=== PATIENT | female | born 1960 | race Caucasian/White ===

== ENCOUNTER 2020-03-30 12:04 | Outpatient (CLI) | payer BC, OTHER, SELFPAY ==
--- NOTE | ~2020-03-30 | XR_ITS ---
XR knee LT 3V DATE: 03/30/2020 12:32 INDICATION: Left knee pain with bending for one year. TECHNIQUE: [place] and AP and lateral views COMPARISON: None FINDINGS: No fracture or dislocation or joint effusion is evident. Patellar tendon enthesopathy at qu adriceps and patellar tendon insertion sites. No periosteal reaction or bone destruction. Joint spaces are well preserved at the knee joint. No radiopaque intra-articular loose body or chondr ocalcinosis. IMPRESSION: Patellar enthesopathy Reviewed, dictated and finalized at location B. EAR MEDICINE TECHNICIAN IMPRESSION: Patellar enthesopathy
== END 2020-03-30 12:05 | disposition home or self-care (01) ==
LOC: CHSIMG 12:10
PROVIDERS: PCP Internal Medicine; Visit Provider Internal Medicine
DX: M25.562 Pain in left knee (principal); Z00.00 Encounter for general adult medical examination without abnormal findings; E78.5 Hyperlipidemia, unspecified
CPT/HCPCS: 73562

== ENCOUNTER 2020-04-13 08:00 | Outpatient (RCR) | payer BC, OTHER, SELFPAY ==
--- NOTE | 2020-04-17 06:44 | PTOPEVAL ---
Thank you for referring Nina Figueredo to [facility].? The patient is scheduled to be seen for therapy? __2__x/week for 8 visits. Please review, sign, date and return this plan of care MICHAEL. I agree with and certify that the following plan of care is medically necessary. Referring Physician Date Admitting Provider: Attending Provider: Rufus Cuevas MD Referring Provider: *PT Outpatient Evaluation Start: 04/13/20 08:09 Freq: Status: Active Protocol: Document 04/13/20 08:09 ZAIN (Rec: 04/13/20 08:39 [email or web address] [id number]) Therapy Assessment Status Assessment Status Assessment Status Evaluation Evaluation Information Problem Diagnosis left knee tendonitis Onset 04/14/19 Subjective Information Pt. recalls off/on knee pain Query Text:As Reported By Patient/ for the past year. She states Family that she recalls no specific injury. She describes pain along the left knee cap and into the patellar tendon. She reports that pain is not constant. She states that bending the knee beyond 90 degrees will increase her pain . She states that pain is most notable after getting up from a long period of sitting. She reports that she will get pain with turning on the left leg as well. She reports that her goal is to get rid of her left knee pain. 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 Activity of Daily Living Ability Independent Indoor/Home Mobility Independent Community Mobility Independent Stairs Ability Independent Functional Cognition (Planning, Shopping Independent , Taking Medications) Cooking Yes Cleaning Yes Laundry Yes Shopping Yes Driving Yes Pain Assessment Pain Scale Pain Scale Used Numeric (1 - 10) Self Report Pain Assessment Left Knee(s) Reported Pain Level 3 Greatest Pain Intensity 10 Pain Score Pain Score 3: Self Report Interventions Used Interventions Used By Clinicians Electrical Stimulation, Exercise,Heat Lower Extremity Range of Motion General Lower Extremity Range of Motion Gross Lower
== END 2020-05-07 09:15 | disposition home or self-care (01) ==
LOC: CHSPT 08:00
PROVIDERS: PCP Internal Medicine; Visit Provider Internal Medicine
DX: M76.52 Patellar tendinitis, left knee (principal)
CPT/HCPCS: 97014; 97110; 97140; 97161; G0283

== ENCOUNTER 2020-11-09 10:39 | Outpatient (CLI) | payer BC, SELFPAY ==
[2020-11-09 13:39] LABS: SARS-CoV-2 RNA PCR Negative (Negative)
== END 2020-11-09 10:40 | disposition home or self-care (01) ==
PROVIDERS: PCP Internal Medicine; Visit Provider Internal Medicine
DX: Z20.822 Contact with and (suspected) exposure to COVID-19 (principal)
CPT/HCPCS: C9803; U0003; U0005

== ENCOUNTER 2020-12-05 19:59 | Emergency (ER) | payer BC, OTHER, SELFPAY ==
--- NOTE | ~2020-12-05 | XR_ITS ---
XR shoulder LT min 2V, XR clavicle LT 12/05/2020 20:30 (accession [id number]), 12/05/2020 20:29 (accession [id number]) INDICATION: Left shoulder pain PROCEDURE: 4 views left shoulder and 2 views left clavicle COMPARISON: No prior studies for comparison. FINDINGS: Fracture, dislocation or subluxation is not identified. There is anatomic alignment. The so ft tissues appear within normal limits. No foreign bodies are identified. IMPRESSION: 1: NO ACUTE BONE OR JOINT ABNORMALITY IDENTIFIED. Reviewed, dictated and finalized at location A. IMPRESSION: 1: NO ACUTE BONE OR JOINT ABNORMALITY IDENTIFIED.
[2020-12-05 20:13] VITALS: BP 169/89; PULSE 90; RESP 20; TEMP 36.7; O2SAT 96
--- NOTE | 2020-12-05 20:37 | ED.GENADULT ---
HPI - General Adult General Chief complaint: Extremity Injury, Upper Stated complaint: Lt shoulder injury Source: patient and family Mode of arrival: ambulatory Limitations: no limitations History of Present Illness HPI narrative: Nina is a previously healthy 60F that presented to the ED with shoulder pain. She tripped on a gate and fell onto her left shoulder and now has pain. She denies any other injuries. She says the worst of the pain is just medial to the left shoulder over the clavicle. She did not hit her head or neck. No LOC. Review of Systems Constitutional: Constitutional: Reports no additional constitutional complaints Eyes: Eyes: Reports no additional eye complaints ENT: Reports system reviewed and no additional complaints, except as documented Cardiovascular: Cardiovascular: Reports no additional cardiovascular complaints Respiratory: Respiratory: Reports no additional respiratory complaints Gastrointestinal: Gastrointestinal: Reports no additional gastrointestinal complaints Genitourinary: Genitourinary: Reports no additional female genitourinary complaints Musculoskeletal: Musculoskeletal: Reports as per HPI Integumentary/Breasts: Skin/Breast: Reports system reviewed and no additional complaints, except as docu Neurologic: Reports system reviewed and no additional complaints, except as documented Psychiatric: Psychiatric: Reports no additional psychiatric complaints Endocrine: Endocrine: Reports no additional endocrine complaints Hematologic/Lymphatic: Hematologic/Lymphatic: Reports no additional hematologic/lymphatic complaints Allergic/Immunologic: Allergic/Immunologic: Reports no additional allergic/immunologic complaints Exam Const: General: no acute distress and alert Orientation/consciousness: patient oriented x3 Limitations: No altered mental status HENMT: Head: normal to inspection Mouth: Yes Normal oral and palatal mucosa present Eyes: Conjunctivae: conjunctivae normal Pupils: Equal, round and reactive pupils present Neck: Neck: normal visual inspection Chest: Chest palpation & inspection: normal inspection of the chest Resp: Effort & Inspection: normal respiratory effort, not labored and not tachypneic Cardio: Rate: regular rate Rhythm: regular rhythm Heart sounds: no murmurs Skin: General skin exam: normal color Rashes: no rashes Neuro: General: patient oriented x3 and moves all extremities Extrem: General: normal to inspection Other: TTP over the left clavicle and lateral shoulder. Decreased ROM and strength of the left shoulder in flexion and abduction. No other injuries noted. Psych: Appearance: grossly normal Mental Status: mental status grossly normal Course Course Emergency Course: Declined pain meds. Ordered radiographs 12/05/2020 20:30 (accession [id number]), 12/05/2020 20:29 (accession [id number]) INDICATION: Left shoulder pain PROCEDURE: 4 views left shoulder and 2 views left clavicle COMPARISON: No prior studies for comparison. FINDINGS: Fracture, dislocation or subluxation is not identified. There is anatomic alignment. The soft tissues appear within normal limits. No foreign bodies are identified. IMPRESSION: 1: NO ACUTE BONE OR JOINT ABNORMALITY IDENTIFIED. Vital Signs Vital signs: Vital Signs Temperature 98.0 F 12/05/20 20:13 Pulse Rate 90 12/05/20 20:13 Respiratory Rate 20 12/05/20 20:13 Blood Pressure 169/89 H 12/05/20 20:13 Pulse Oximetry 96 12/05/20 20:13 Temperature 98.0 F 12/05/20 20:13 Pulse Rate 90 12/05/20 20:49 Respiratory Rate 18 12/05/20 20:49 Blood Pressure 160/87 H 12/05/20 20:49 Pulse Oximetry 98 12/05/20 20:49 Medical Decision Making Vital Signs Vital Signs: Vital Signs Temperature 98.0 F 12/05/20 20:13 Pulse Rate 90 12/05/20 20:13 Respiratory Rate 20 12/05/20 20:13 Blood Pressure 169/89 H 12/05/20 20:13 Pulse Oximetry 96 12/05/20 20:13 Temperature 98.0 F
[2020-12-05 20:49] VITALS: BP 160/87; PULSE 90; RESP 18; O2SAT 98
== END 2020-12-05 20:49 | disposition home or self-care (01) ==
PROVIDERS: Emergency Provider Family Medicine; PCP Internal Medicine
DX: M25.512 Pain in left shoulder (principal)
CPT/HCPCS: 73000; 73030; 99282; 99283

== ENCOUNTER 2020-12-10 11:43 | Outpatient (CLI) | payer BC, OTHER, SELFPAY ==
[2020-12-10 12:11] LABS: Add Urine Microscopic? YES; Appearance Urine Clear (Clear); Basophils Absolute Auto 0.04 K/mm3 (0.00-0.10); Basophils Percent Auto 0.4 % (0.0-1.0); Bilirubin Urine Negative (Negative); Blood Urine Negative (Negative); Color Urine Light Yellow (Yellow); Eosinophils Absolute Auto 0.21 K/mm3 (0.02-0.50); Eosinophils Percent Auto 2.2 % (1.0-6.0); Glucose Urine UA Negative (Negative); Hematocrit 44.3 % (35.0-49.0); Immature Granulocyte Absolute 0.06 K/mm3 (0.00-0.00); Immature Granulocyte Percent A 0.6 % (0.0-0.0); Ketones Urine Negative (Negative); Leukocyte Esterase Ur 1+ (Negative); Lymphocytes Absolute Auto 2.22 K/mm3 (1.10-4.50); Lymphocytes Percent Auto 23.5 % (18.0-42.0); Mean Corpuscular HGB Conc 33.9 g/dL (32.0-36.0); Mean Corpuscular Hemoglobin 29.5 pg (27.0-31.0); Mean Platelet Volume 9.7 fl (9.2-11.8); Monocytes Absolute Auto 0.55 K/mm3 (0.10-0.90); Monocytes Percent Auto 5.8 % (2.0-11.0); Neutrophils Absolute Auto 6.4 K/mm3 (1.7-7.2); Neutrophils Percent Auto 67.5 % (50.0-70.0); Nitrate Urine Negative (Negative); Platelet Count Result 250 K/mm3 (150-420); Protein Urine Negative (Negative); Red Blood Count 5.09 M/mm3 (4.20-5.40); Red Cell Distribution Width 12.3 % (11.6-14.4); Specific Grav Ur 1.015 (1.010-1.020); Urobilinogen Urine 0.2 mg/dL (0.2-1.0); White Blood Count 9.4 K/mm3 (4.8-10.8)
[2020-12-10 12:16] LABS: RBC Urine None seen /hpf (0-2); Squamous Epithelial Cell Urine Rare /hpf (Few); WBC Urine 0-3 /hpf (0-3)
[2020-12-10 12:17] LABS: Bacteria Urine Trace /hpf
[2020-12-10 12:45] LABS: Alanine Aminotransferase 28 U/L (14-59); Albumin Level 4.4 g/dL (3.4-5.0); Alkaline Phosphatase 87 U/L (46-116); Anion Gap 12 mmol/L (8-16); Aspartate Amino Transferase 13 U/L (15-37); Bilirubin,Total 0.6 mg/dL (0.00-1.00); Blood Urea Nitrogen 9 mg/dL (7-18); Calcium 9.9 mg/dL (8.5-10.1); Carbon Dioxide 28 mmol/L (21-32); Chloride 103 mmol/L (98-108); Cholesterol 273 mg/dL (0-200); Estimated Glomerular Filt Rate > 60; Glucose 90 mg/dL (70-99); HDL Direct 32 mg/dL (40-60); Osmolality Calculated 294 mOsm/kg (285-295); Sodium 143 mmol/L (136-145); Thyroid Stimulating Hormone 1.86 uIU/mL (0.36-3.74); Total Protein 7.5 g/dL (6.4-8.2)
[2020-12-10 12:51] LABS: LDL Cholesterol Calculated 136 mg/dL (<130); Triglycerides 526 mg/dL (0-150)
[2020-12-10 12:52] LABS: LDL Cholesterol Direct 135 mg/dL (0-130)
== END 2020-12-10 11:44 | disposition home or self-care (01) ==
LOC: CHSLAB 11:46
PROVIDERS: PCP Internal Medicine; Visit Provider Internal Medicine
DX: Z00.00 Encounter for general adult medical examination without abnormal findings (principal); I10 Essential (primary) hypertension
CPT/HCPCS: 36415; 80053; 80061; 81001; 83721; 84443; 85025

== ENCOUNTER 2020-12-20 09:12 | Outpatient (CLI) | payer BC, OTHER, SELFPAY ==
--- NOTE | 2020-12-20 10:30 | ECHO_ITS ---
Patient Info Name: Nina Figueredo Age: 60 years : 1960 Gender: Female Ht: 67 in Wt: 156 lbs BSA: 1.84 m2 HR: 75 bpm BP: 146 / 70 mmHg Exam Date: 12/20/2020 10:06 AM Exam Location: [facility] Patient Status: Outpatient Admit Date: 12/20/2020 Staff Ordering Physician: Rufus Cuevas MD Application Defense Manager: [employer] Attending Provider: Rufus Cuevas MD Exam Type: CA echo doppler color flow Study Info Indications I10 - Essential (primary) hypertension Complete two-dimensional, color flow and Doppler transthoracic echocardiogram is performed. Strain analysis performed. Summary 1. Complete two-dimensional, color flow and Doppler transthoracic echocardiogram is performed. 2. Left ventricular chamber dimension is normal. 3. Left ventricular systolic function is normal, estimated at 60-65%. 4. The left ventricular diastolic function is grade I diastolic dysfunction. 5. E/e' 6 is not elevated. 6. Global longitudinal strain is normal at -19.7%. 7. The mitral valve has mildly calcified annulus. Left Ventricle E/e' 6 is not elevated. Global longitudinal strain is normal at -19.7%. Left ventricular chamber dimension is normal. Left ventricular systolic function is normal, estimated at 60-65%. The left ventricular diastolic function is grade I diastolic dysfunction. Right Ventricle Right ventricular systolic function is normal with normal TAPSE 2.0 cm. Right ventricular chamber dimension is normal. Left Atria Left atrial chamber dimension is normal. Right Atria Right atrial chamber dimension is normal. Aortic Valve The aortic valve is probable trileaflet. There is no aortic valve stenosis. There is no aortic valve regurgitation. Pulmonic Valve There is no pulmonic regurgitation. Mitral Valve The mitral valve has mildly calcified annulus. There is no mitral valve stenosis. There is no mitral valve regurgitation. Tricuspid Valve There is no tricuspid valve regurgitation. Pericardium/Pleural There is no pericardial effusion. Inferior Vena Cava Normal inferior vena cava with >50% collapse upon inspiration consistent with normal right atrial pressure, 5 mmHg. Aorta The aortic root size at the sinus of Valsalva is normal. Left Ventricular Outflow Tract Name Value Normal LVOT 2D LVOT Diameter 1.9 cm LVOT Doppler LVOT Peak Velocity 94 cm/s LVOT Peak Gradient 4 mmHg LVOT Mean Gradient 2 mmHg LVOT VTI 20 cm LVOT VTI/AV VTI Ratio 0.6 LVOT Stroke Volume 58 ml Mitral Valve Name Value Normal MV Doppler MV Decel Wilkinson 354 cm/s2 MV PHT 57 ms MV Area (PHT) 3.8 cm2 4.0-5.0
== END 2020-12-20 09:13 | disposition home or self-care (01) ==
LOC: CHSIMG 09:13
PROVIDERS: PCP Internal Medicine; Visit Provider Internal Medicine
DX: Z00.00 Encounter for general adult medical examination without abnormal findings (principal); I10 Essential (primary) hypertension
CPT/HCPCS: 93306

== ENCOUNTER 2021-04-10 07:39 | Outpatient (CLI) | payer BC, OTHER, SELFPAY ==
[2021-04-10 08:38] LABS: Alanine Aminotransferase 33 U/L (14-59); Albumin Level 3.9 g/dL (3.4-5.0); Alkaline Phosphatase 77 U/L (46-116); Anion Gap 10 mmol/L (8-16); Aspartate Amino Transferase 15 U/L (15-37); Bilirubin,Total 0.5 mg/dL (0.00-1.00); Blood Urea Nitrogen 9 mg/dL (7-18); Calcium 8.9 mg/dL (8.5-10.1); Carbon Dioxide 27 mmol/L (21-32); Chloride 107 mmol/L (98-108); Cholesterol 173 mg/dL (0-200); Estimated Glomerular Filt Rate > 60; Glucose 92 mg/dL (70-99); HDL Direct 29 mg/dL (40-60); LDL Cholesterol Calculated 81 mg/dL (<130); Osmolality Calculated 296 mOsm/kg (285-295); Potassium 4.2 mmol/L (3.5-5.1); Sodium 144 mmol/L (136-145); Total Protein 6.7 g/dL (6.4-8.2); Triglycerides 315 mg/dL (0-150)
== END 2021-04-10 07:40 | disposition home or self-care (01) ==
LOC: CHSLAB 07:41
PROVIDERS: PCP Internal Medicine; Visit Provider Internal Medicine
DX: E78.5 Hyperlipidemia, unspecified (principal)
CPT/HCPCS: 36415; 80053; 80061

== ENCOUNTER 2021-08-21 16:57 | Emergency (ER) | payer OTHER, SELFPAY ==
--- NOTE | 2021-08-21 16:59 | ED.EXTPRO ---
HPI - Extremity Problem General Chief complaint: Extremity Injury, Lower Stated complaint: L CALF PAIN Time Seen by Provider: 08/21/21 16:59 Source: patient Mode of arrival: ambulatory Limitations: no limitations History of Present Illness HPI Narrative: Ms. Figueredo is a 61-year-old female patient presenting to the clinic today with complaints of left calf pain x1 day. She reports she was mowing the lawn yesterday and developed pain in the back of her left calf. She reports that the pain is sharp in the back of her calf. 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 She denies any tenderness over the Achilles tendon. Related Data Home Medications Medication Instructions Recorded Confirmed rosuvastatin 5 mg tablet 5 mg PO DAILY 08/21/21 08/21/21 Allergies Allergy/AdvReac Type Severity Reaction Status Date / Time No Known Allergies Allergy Verified 08/21/21 17:05 Review of Systems Review of Systems: Pertinent positives per HPI. Patient denies any fever, chills, rash, headache, visual changes, dizziness, cough, runny nose, sore throat, shortness of breath, chest pain, palpitations, nausea, vomiting, diarrhea, constipation, abdominal pain, or any urinary issues. PMFSH Comments At the time of my signature, I reviewed and agree with the nursing past medical, surgical, social, and family history. There is no relevant family history pertinent to the patient complaint. Exam Narrative: General: Well-developed, well nourished, in no apparent distress Head: Normocephalic, atraumatic. Cardio: Regular rate and rhythm, s1 and s2 normal, no murmur appreciated. Resp: Clear to auscultation bilaterally, no rhonchi, rales, wheezing or rubs. Musculoskeletal: No deformity,tender to palpation to the inferior calf muscle, negative Homans' sign, no erythema, grossly normal range of motion, muscle strength strong and equal, peripheral pulse strong, no edema, no cyanosis, normal gait and station Course Course Emergency Course: Portions of this record may have been created with voice recognition software. Level of Care: Express Care Visit Vital Signs Vital signs: Vital signs reviewed MDM - Extremity (Nontraumatic) MDM Narrative Medical decision making narrative: At the time of visit patient is resting comfortably on the exam table. I suspect that the patient has a muscle strain to the left calf muscle. Negative Homans' sign, no erythema or edema noted. Supportive measures were discussed with the patient she voiced understanding of discharge instructions and agrees to treatment plan. Differential Diagnosis Differential diagnosis: Likely superficial thrombophlebitis, lower extremity edema, deep vein thrombosis of lower extremity and other (Muscle strain, Achilles tendinitis.) Discharge Plan Discharge Clinical Impression: Strain of left calf muscle Patient Disposition: Home, Self-Care Condition: Stable Instructions: Antibiotic Form, Muscle Strain (ED) Additional Instructions: Prednisone as prescribed May apply ice to the affected area Stop smoking. If symptoms persist in the next 2 to 3 days or worsen recommend follow-up with PCP or going to the emergency room to rule out blood clot. Prescriptions: New prednisone 20 mg tablet 40 mg PO DAILY 5 Days Qty: 10 0RF No Action rosuvastatin 5 mg Tablet 5 mg PO DAILY Follow-up/Referrals: UNKNOWN,DOCTOR [Non-Staff] - Time of Disposition: 17:13 Quality NIHSS Nursing Documentation ED NIHSS nursing documentation: reviewed/agree
[2021-08-21 17:05] VITALS: BP 168/85; PULSE 98; RESP 16; TEMP 37.2; O2SAT 98
[2021-08-21 17:08] VITALS: BP 168/85; PULSE 98; RESP 16; TEMP 37.2; O2SAT 98
== END 2021-08-21 17:17 | disposition home or self-care (01) ==
PROVIDERS: Emergency Provider Nurse Practitioner Family; PCP Internal Medicine
DX: S86.112A Strain of other muscle(s) and tendon(s) of posterior muscle group at lower leg level, left leg, initial encounter (principal); X58.XXXA Exposure to other specified factors, initial encounter; E78.00 Pure hypercholesterolemia, unspecified
CPT/HCPCS: 99213; G0463

== ENCOUNTER 2022-03-24 10:04 | Outpatient (CLI) | payer BC, OTHER, SELFPAY ==
--- NOTE | ~2022-03-24 | XR_ITS ---
Left wrist Technique: PA, oblique, lateral, and ulnar deviation views were obtained. Clinical History: Pain Findings: No acute fracture or dislocation is seen. Chronic fracture fragment versus persistent secon sohail ossification center present at the ulnar styloid process region. There is a very large osteophyt e or heterotopic ossification at the base of the thumb, with underlying moderate first CMC joint dege nerative change. Suggestion of fusion of the trapezium and trapezoid. Soft tissues are unremarkable. Impression: No acute fracture or dislocation. Moderate first CMC joint degenerative change, with apparent large osteophyte or heterotopic ossificat ion adjacent to the base of the thumb. Chronic fracture fragment versus persistent secondary ossification center at the ulnar styloid proces s region. Suggestion of fusion of the trapezium and trapezoid. Reviewed, dictated and finalized at [facility]. [employer] Impression: No acute fracture or dislocation. Moderate first CMC joint degenerative change, with apparent large osteophyte or heterotopic ossification adjacent to the base of the thumb. Chronic fracture fragment versus persistent secondary ossification center at th e ulnar styloid process region. Suggestion of fusion of the trapezium and trapezoid.
--- NOTE | ~2022-03-24 | XR_ITS ---
Left Hand Technique: PA, oblique, and lateral views were obtained. Clinical History: Pain Findings: No acute fracture or dislocation is seen. There is moderate first CMC joint degenerative ch yariel with large osteophyte or heterotopic ossification adjacent to the base of the thumb. Suspected f usion of the trapezium and trapezoid. There is degenerative change of the DIP joints of the hand, wor st at the fifth DIP joint. Remaining joint spaces are intact. Soft tissues are unremarkable. Impression: Degenerative changes, as above, particularly of the DIP joints and first CMC joint. No acute fracture or dislocation. Reviewed, dictated and finalized at location M. GANG SUPERVISOR Impression: Degenerative changes, as above, particularly of the DIP joints and first CMC ar int. No acute fracture or dislocation.
== END 2022-03-24 10:05 | disposition home or self-care (01) ==
LOC: CHSIMG 10:08
PROVIDERS: PCP Internal Medicine; Visit Provider Internal Medicine
DX: M25.532 Pain in left wrist (principal)
CPT/HCPCS: 73110; 73130

== ENCOUNTER 2022-06-30 13:31 | Outpatient (CLI) | payer BC, OTHER, SELFPAY ==
--- NOTE | ~2022-06-30 | XR_ITS ---
EXAM: XR wrist RT min 3V DATE: 06/30/2022 13:52 HISTORY: osteoarthritis,CHRONIC PAIN WITH SWELLING . COMPARISON: None available. FINDINGS: Decreased mineralization. No fracture or dislocation. No lytic or blastic lesion. Severe d egenerative change at the trapeziometacarpal joint. More mild degenerative changes at the radiocarpal joint, triscaphe joint, and right first MCP joint. Degenerative subchondral cysts in the lunate and triquetral bones. No erosion or periosteal change. Soft tissues within normal limits. IMPRESSION: Osteopenia. Polyarticular osteoarthritis, severe at the trapeziometacarpal joint. Reviewed, dictated and finalized at location K. IMPRESSION: Osteopenia. Polyarticular osteoarthritis, severe at the trapeziomet acarpal joint.
== END 2022-06-30 13:32 | disposition home or self-care (01) ==
LOC: CHSIMG 13:33
PROVIDERS: PCP Internal Medicine; Visit Provider Plastic Surgery
DX: M19.031 Primary osteoarthritis, right wrist (principal); M85.88 Other specified disorders of bone density and structure, other site
CPT/HCPCS: 73110

== ENCOUNTER 2022-07-28 07:50 | Outpatient (CLI) | payer BC, OTHER, SELFPAY ==
[2022-07-28 08:02] LABS: Basophils Absolute Auto 0.02 K/mm3 (0.00-0.10); Basophils Percent Auto 0.3 % (0.0-1.0); Eosinophils Percent Auto 4.7 % (1.0-6.0); Hematocrit 42.6 % (35.0-49.0); Hemoglobin 14.3 g/dL (12.0-15.0); Immature Granulocyte Absolute 0.03 K/mm3 (0.00-0.00); Immature Granulocyte Percent A 0.5 % (0.0-0.0); Lymphocytes Absolute Auto 2.15 K/mm3 (1.10-4.50); Lymphocytes Percent Auto 33.7 % (18.0-42.0); Mean Corpuscular HGB Conc 33.6 g/dL (32.0-36.0); Mean Corpuscular Hemoglobin 29.9 pg (27.0-31.0); Mean Corpuscular Volume 89.1 fL (78.0-102.0); Monocytes Absolute Auto 0.41 K/mm3 (0.10-0.90); Monocytes Percent Auto 6.4 % (2.0-11.0); Neutrophils Absolute Auto 3.5 K/mm3 (1.7-7.2); Neutrophils Percent Auto 54.4 % (50.0-70.0); Platelet Count Result 216 K/mm3 (150-420); Red Blood Count 4.78 M/mm3 (4.20-5.40); Red Cell Distribution Width 12.6 % (11.6-14.4); White Blood Count 6.4 K/mm3 (4.8-10.8)
[2022-07-28 08:03] LABS: Appearance Urine Clear (Clear); Bilirubin Urine Negative (Negative); Blood Urine Negative (Negative); Color Urine Light Yellow (Yellow); Glucose Urine UA Negative (Negative); Ketones Urine Negative (Negative); Leukocyte Esterase Ur Trace (Negative); Nitrate Urine Negative (Negative); Protein Urine Negative (Negative); Specific Grav Ur 1.015 (1.010-1.020); Urobilinogen Urine 0.2 mg/dL (0.2-1.0)
[2022-07-28 08:11] LABS: Add Urine Microscopic? YES; Bacteria Urine Rare /hpf; RBC Urine None seen /hpf (0-2); Squamous Epithelial Cell Urine Occasional /hpf (Few); WBC Urine 0-3 /hpf (0-3)
[2022-07-28 08:50] LABS: Alanine Aminotransferase 30 U/L (14-59); Alkaline Phosphatase 68 U/L (46-116); Anion Gap 9 mmol/L (8-16); Aspartate Amino Transferase 13 U/L (15-37); Bilirubin,Total 0.5 mg/dL (0.00-1.00); Blood Urea Nitrogen 14 mg/dL (7-18); Calcium 9.1 mg/dL (8.5-10.1); Carbon Dioxide 27 mmol/L (21-32); Chloride 107 mmol/L (98-108); Cholesterol 221 mg/dL (0-200); Estimated Glomerular Filt Rate > 60; Glucose 94 mg/dL (70-99); HDL Direct 54 mg/dL (40-60); LDL Cholesterol Calculated 132 mg/dL (<130); Osmolality Calculated 296 mOsm/kg (285-295); Potassium 4.5 mmol/L (3.5-5.1); Sodium 143 mmol/L (136-145); Thyroid Stimulating Hormone 2.73 uIU/mL (0.36-3.74); Total Protein 6.8 g/dL (6.4-8.2); Triglycerides 174 mg/dL (0-150)
[2022-07-28 08:51] LABS: CRP < 0.5 mg/dL (0.0-0.9)
[2022-07-31 13:50] LABS: Anti Nuclear Antibody Pattern Nuclear, Speckled; Anti Nuclear Antibody Titer 1:40 (Negative)
== END 2022-07-28 07:51 | disposition home or self-care (01) ==
PROVIDERS: PCP Internal Medicine; Visit Provider Internal Medicine
DX: E78.2 Mixed hyperlipidemia (principal); I10 Essential (primary) hypertension; M25.532 Pain in left wrist
CPT/HCPCS: 36415; 80053; 80061; 81001; 84443; 85025; 86038; 86039; 86140